=== PATIENT | female | born 2000 | race Two or more races ===

== ENCOUNTER 2021-06-15 20:14 | Emergency (ER) | payer SELFPAY ==
[2021-06-15] MEDS ORDERED: Diphtheria,Pertussis(Acell),Tetanus Vaccine 0.5 ML Syringe IM ONE (20:40)
[2021-06-15] MEDS ORDERED: Lidocaine 1% 10 ML MDV INJECT ONE (20:40)
--- NOTE | 2021-06-15 20:44 | EDM.PDOC ---
ED HPI GENERAL MEDICAL PROBLEM - General Chief Complaint: Upper Extremity Injury/Pain Stated Complaint: RT RING FINGER LAC Time Seen by Provider: 06/15/21 20:30 Source of Information: Reports: Patient, RN Notes Reviewed History Limitations: Reports: Language Barrier (Patient has family member in room that speaks Colombian and does translate from Czech.) - History of Present Illness INITIAL COMMENTS - FREE TEXT/NARRATIVE: Patient is a 21-year-old female presents to the ER for evaluation of a right ring finger laceration. This is on the posterior aspect of the patient's DIP joint. Roughly 1 cm in linear and fashion. States she was cooking supper, and ended up cutting her finger on accident. She is denying any severe numbness or tingling distal to the injury, she has no loss of range of motion within the digit. Bleeding is under control at this time. Patient is not up-to-date on her tetanus vaccine. Patient denies any other sick-like symptoms, fever/chills, cough/shortness of breath, nausea/vomiting/diarrhea. Right Middle Finger-Ring Pain Score (Numeric/FACES): 1 - Related Data Allergies Allergy/AdvReac Type Severity Reaction Status Date / Time acetaminophen [From Percocet] Allergy Intermediate Rash Verified 06/15/21 20:44 oxycodone [From Percocet] Allergy Intermediate Rash Verified 06/15/21 20:44 Home Meds: Home Meds . [No Known Home Meds] 06/15/21 [History] Review of Systems - Review of Systems Review Of Systems: Comprehensive ROS is negative, except as noted in HPI. ED EXAM, GENERAL - Physical Exam Exam: See Below Exam Limited By: No Limitations General Appearance: Alert, WD/WN, No Apparent Distress Respiratory/Chest: No Respiratory Distress, Lungs Clear, Normal Breath Sounds, No Accessory Muscle Use, Chest Non-Tender Cardiovascular: Normal Peripheral Pulses, Regular Rate, Rhythm, No Edema Extremities: Normal Inspection, Normal Capillary Refill Neurological: Alert, Oriented, Normal Cognition, No Motor/Sensory Deficits Psychiatric: Normal Affect, Normal Mood Skin Exam: Warm, Dry, Normal Color, No Rash, Wound/Incision (1 cm linear laceration to the patient's distal interphalangeal joint on the posterior right ring finger.) ED TRAUMA EXTREMITY PROCEDURES - Laceration/Wound Repair Right Posterior Distal Digit - 4th (Ring) Lac/Wound Length In cm: 1 Appearance: Superficial, Linear, Clean Distal NVT: Neuro & Vascular Intact, No Tendon Injury Anesthetic Type: Local Local Anesthesia - Lidocaine (Xylocaine): 1% Plain Local Anesthetic Volume: 3cc Skin Prep: Chlorhexidine (Hibiciens), Saline Exploration/Debridement/Repair: Wound Explored, In a Bloodless Field, Explored to Base, No Foreign Material Found Closed With: Sutures Suture Size: 4-0 # of Sutures: 4 Suture Type: Prolene, Interrupted, Simple Sterile Dressing Applied: Nurse Tetanus Status Addressed: Yes (updated at today's visit) Complications: No Course - Vital Signs Last Recorded V/S: Last Vital Signs Temp 96.8 F L 06/15/21 20:26 Pulse 74 06/15/21 20:26 Resp 16 06/15/21 20:26 BP 104/71 06/15/21 20:26 Pulse Ox 100 06/15/21 20:26 - Orders/Labs/Meds Orders: Active Orders 24 hr Category Date Time Status Vaccine to be Administered/Admin Charge [RC] ASDIRECTED Care 06/15/21 20:40 Active Meds: Medications Discontinued Medications Generic Name Dose Route Start Last Admin Trade Name Freq PRN Reason Stop Dose Admin Diphtheria/Tetanus/Acell Pertussis 0.5 ml 06/15/21 20:40 06/15/21 20:55 Diphtheria,Pertussis(Acell),Tetanus Vaccine 0.5 Ml Syringe IM 06/15/21 20:41 0.5 ml .ONCE ONE Administration Lidocaine HCl 10 ml 06/15/21 20:40 Lidocaine 1% 10 Ml Mdv INJECT 06/15/21 20:41 ONETIME ONE Departure - Departure Time of Disposition: 20:43 Disposition: Home, Self-Care 01 Condition: Good Clinical Impression: Finger laceration Qualifiers: Encounter type: initial encounter Finger: ring finger Damage to nail status: without damage Foreign body presence: without foreign body Laterality: right Qualified Code(s): S61.214A - Laceration without foreign body of right ring finger without damage to nail, initial encounter - Discharge Information *PRESCRIPTION DRUG MONITORING PROGRAM REVIEWED*: No *COPY OF PRESCRIPTION DRUG MONITORING REPORT IN PATIENT RAMONA: No Instructions: Laceration Care, Adult, [id number] Referrals: PCP,None [Primary Care Provider] - Forms: ED Department Discharge Additional Instructions: You have been evaluated in the ED for your laceration. Sutures will need to stay in for 10 to 14 days. You may return to the ED or any clinic for removal. Please keep this area clean and dry, you may cleanse with regular soap and water. No vigorous scrubbing. Please try to avoid submerging the affected area in water for prolonged periods of time until the sutures are removed. Watch out for signs of infection like increased redness, swelling, pain at the laceration site, or if you should develop any fevers or chills. Please return to ED if your symptoms change or worsen. Haney sido evaluado en el servicio de urgencias por artis laceracin. Las suturas debern permanecer entre 10 y 14 patterson. Puede regresar al servicio de urgencias o cualquier clnica para que lo retiren. Mantenga esta yesenia limpia y seca, puede limpiarla con agua y jabn comn. Sin fregar vigorosamente. Intente evitar sumergir el yesenia afectada en agua robb perodos prolongados de tiempo hasta que se retiren las suturas. Tenga cuidado con los signos de infeccin, domonique aumento del enrojecimiento, hinchazn, dolor en el sitio de la laceracin o si presenta fiebre o escalofros. Regrese al servicio de urgencias si rl sntomas cambian o empeoran. Sepsis Event Note (ED) - Focused Exam Vital Signs: Vital Signs Temp Pulse Resp BP Pulse Ox 06/15/21 20:26 96.8 F L 74 16 104/71 100 - My Orders Last 24 Hours: My Active Orders 06/15/21 20:40 Vaccine to be Administered/Admin Charge [RC] ASDIRECTED - Assessment/Plan Last 24 Hours: My Active Orders 06/15/21 20:40 Vaccine to be Administered/Admin Charge [RC] ASDIRECTED
== END 2021-06-15 21:30 | disposition home or self-care (01) ==
LOC: JD.ED 20:14
DX: S61.214A Laceration without foreign body of right ring finger without damage to nail, initial encounter (principal); Z88.5 Allergy status to narcotic agent; Z23 Encounter for immunization; W26.0XXA Contact with knife, initial encounter; Y93.G3 Activity, cooking and baking
CPT/HCPCS: 90471; 90715; 99282

== ENCOUNTER 2021-07-10 19:44 | Emergency (ER) | payer BC ==
--- NOTE | 2021-07-10 20:28 | EDM.PDOC ---
ED HPI GENERAL MEDICAL PROBLEM - General Chief Complaint: General Stated Complaint: SINUS INFECTION Time Seen by Provider: 07/10/21 20:02 Source of Information: Reports: Patient, Family History Limitations: Reports: Language Barrier - History of Present Illness INITIAL COMMENTS - FREE TEXT/NARRATIVE: 21-year-old female presents the emergency department accompanied with her lulu nd with complaints of increased redness to her nose despite using antibiotic ointment. She also has developed increased pressure and pain to her frontal and maxillary sinuses over the past few days. She denies any recent fever, chills, nausea, vomiting or diarrhea. She occasionally has sinus congestion. She does have a history of issues with her sinuses. She states she is otherwise healthy. Patient is not Liberian speaking however her was able to translate. Left Face/Facial Pain Score (Numeric/FACES): 10 - Related Data Allergies Allergy/AdvReac Type Severity Reaction Status Date / Time acetaminophen [From Percocet] Allergy Intermediate Rash Verified 06/15/21 20:44 oxycodone [From Percocet] Allergy Intermediate Rash Verified 07/10/21 20:05 Home Meds: Home Meds Doxycycline [Vibra-Tabs] 100 mg PO Q12HR #14 tab 07/10/21 [Rx] Past Medical History HEENT History: Reports: None Cardiovascular History: Reports: None Respiratory History: Reports: None Gastrointestinal History: Reports: None Genitourinary History: Reports: None Musculoskeletal History: Reports: None Neurological History: Reports: None Psychiatric History: Reports: None Endocrine/Metabolic History: Reports: None Hematologic History: Reports: None Immunologic History: Reports: None Oncologic (Cancer) History: Reports: None Dermatologic History: Reports: None - Past Surgical History Head Surgeries/Procedures: Reports: None Respiratory Surgical History: Reports: None GI Surgical History: Reports: None Female Surgical History: Reports: None Endocrine Surgical History: Reports: None Social & Family History - Tobacco Use Tobacco Use Status *Q: Never Tobacco User - Caffeine Use Caffeine Use: Reports: None ED ROS GENERAL - Review of Systems Review Of Systems: Comprehensive ROS is negative, except as noted in HPI. ED EXAM, GENERAL - Physical Exam Exam: See Below Exam Limited By: No Limitations General Appearance: Alert, WD/WN, No Apparent Distress Ears: Normal External Exam, Hearing Grossly Normal Nose: Normal Mucosa, No Blood, Other (Increased area of redness noted to the tip of the patient's nose) Throat/Mouth: Normal Inspection, Normal Lips, Normal Voice, No Airway Compromise Head: Atraumatic, Normocephalic Neck: Normal Inspection, Supple Respiratory/Chest: No Respiratory Distress, Lungs Clear, Normal Breath Sounds, No Accessory Muscle Use, Chest Non-Tender Cardiovascular: Normal Peripheral Pulses, Regular Rate, Rhythm, No Edema, No Murmur Peripheral Pulses: 2+: Radial (L), Radial (R) GI/Abdominal: Normal Bowel Sounds, Soft, Non-Tender, No Distention (Female) Exam: Deferred Rectal (Female) Exam: Deferred Back Exam: Normal Inspection Neurological: Alert, Oriented, Normal Cognition Psychiatric: Normal Affect, Normal Mood Skin Exam: Warm, Dry, Intact, No Rash, Erythema (Tip of the patient's nose) Lymphatic: No Adenopathy Course - Vital Signs Text/Narrative:: As stated above, patient presents with area of redness/cellulitis noted to the tip of her nose. Area is painful to touch. Was seen at the walk-in clinic a few days ago and prescribed Bactroban ointment however she states she has now developed sinus pain and pressure. Upon exam, patient does have significant tenderness noted to left frontal and maxillary sinuses with pain into her teeth on the left side. Physical exam is otherwise unremarkable. Patient will be discharged home with a prescription for doxycycline to treat both the skin infection as well as a sinusitis. Last Recorded V/S: Last Vital Signs Temp 98.8 F 07/10/21 20:02 Pulse 92 07/10/21 20:02 Resp 18 07/10/21 20:02 BP 110/75 07/10/21 20:02 Pulse Ox 100 07/10/21 20:02 Departure - Departure Time of Disposition: 20:23 Disposition: Home, Self-Care 01 Condition: Good Clinical Impression: Sinusitis, acute Qualifiers: Sinusitis location: frontal Recurrence: not specified as recurrent Qualified Code(s): J01.10 - Acute frontal sinusitis, unspecified - Discharge Information Prescriptions: Doxycycline [Vibra-Tabs] 100 mg PO Q12HR #14 tab Instructions: Sinusitis, Adult, [id number] Referrals: PCP,None [Primary Care Provider] - Forms: ED Department Discharge Additional Instructions: Neyshlimar the emergency department with complaints of a painful sore to the tip of her nose as well as pain in her sinuses on the left side. Continue using the topical antibiotic ointment as directed. As discussed this likely could take up to 10 days to resolve. I have sent a prescription to [place] [facility] for an antibiotic called doxycycline. She will need to take 1 tab twice daily until gone. It will be for a total of 7 days. This will clear up the infection in her sinuses as well as assist with clearing up the infection on her nose. As discussed, it likely will take a couple of days before she notices the antibiotics are working. Recommend taking ibuprofen 600 mg every 6-8 hours for the next 48 hours to decrease the pain until the antibiotics take effect. Also recommend using hot wet compresses to her nose up to 4 times a daily. Sepsis Event Note (ED) - Evaluation Sepsis Screening Result: No Definite Risk - Focused Exam Vital Signs: Vital Signs Temp Pulse Resp BP Pulse Ox 07/10/21 20:02 98.8 F 92 18 110/75 100
== END 2021-07-10 20:37 | disposition home or self-care (01) ==
LOC: JD.ED 19:44
DX: J01.10 Acute frontal sinusitis, unspecified (principal); Z88.5 Allergy status to narcotic agent; Z88.8 Allergy status to other drugs, medicaments and biological substances
CPT/HCPCS: 99283

== ENCOUNTER 2022-02-12 22:06 | Emergency (ER) | payer BC, MEDICAID | END 2022-02-12 23:29 | disposition home or self-care (01) | LOC: JD.ED 22:06 | DX: N64.4 Mastodynia (principal); L73.1 Pseudofolliculitis barbae; Z88.5 Allergy status to narcotic agent; Z88.8 Allergy status to other drugs, medicaments and biological substances; Z86.16 Personal history of COVID-19 | CPT/HCPCS: 99283 ==

== ENCOUNTER 2022-02-28 18:57 | Emergency (ER) | payer BC, MEDICAID ==
[2022-02-28] MEDS ORDERED: Ondansetron 4 MG Tab.DIS PO ONE (22:15)
== END 2022-02-28 23:55 | disposition home or self-care (01) ==
LOC: JD.ED 18:57
DX: O21.9 Vomiting of pregnancy, unspecified (principal); Z3A.00 Weeks of gestation of pregnancy not specified; Z88.5 Allergy status to narcotic agent; Z88.6 Allergy status to analgesic agent; Z86.16 Personal history of COVID-19; Z87.891 Personal history of nicotine dependence
CPT/HCPCS: 36415; 80053; 81025; 85025; 99284; A9270

== ENCOUNTER 2022-03-09 19:24 | Emergency (ER) | payer MEDICAID ==
[2022-03-09] MEDS ORDERED: Sodium Chloride 0.9% 10 ML Syringe FLUSH PRN (21:00)
== END 2022-03-09 22:50 | disposition home or self-care (01) ==
LOC: JD.ED 19:24
DX: O99.891 Other specified diseases and conditions complicating pregnancy (principal); R10.32 Left lower quadrant pain; R10.31 Right lower quadrant pain; Z3A.01 Less than 8 weeks gestation of pregnancy; Z86.16 Personal history of COVID-19; Z88.6 Allergy status to analgesic agent; Z88.5 Allergy status to narcotic agent
CPT/HCPCS: 36415; 76817; 81003; 84702; 85025; 86900; 86901; 99284; J3490; 99283

== ENCOUNTER 2022-03-15 22:37 | Emergency (ER) | payer MEDICAID ==
[2022-03-15] MEDS ORDERED: Sodium Chloride 0.9% 10 ML Syringe FLUSH PRN (23:29)
[2022-03-15] MEDS ORDERED: HYDROmorphone 0.5 MG/0.5 ML Syringe IVPUSH ONE (23:31)
== END 2022-03-16 01:30 | disposition home or self-care (01) ==
LOC: JD.ED 22:37
DX: O03.9 Complete or unspecified spontaneous abortion without complication (principal); Z3A.01 Less than 8 weeks gestation of pregnancy; Z88.6 Allergy status to analgesic agent; Z88.5 Allergy status to narcotic agent; Z86.16 Personal history of COVID-19; Z87.891 Personal history of nicotine dependence
CPT/HCPCS: 36415; 76817; 84702; 85025; 86900; 86901; 96374; 99284; J1170; J3490

== ENCOUNTER 2022-03-19 17:13 | Day surgery (SDC) | payer MEDICAID ==
[2022-03-19] MEDS ORDERED: Ondansetron 4 MG/2 ML SDV IVPUSH ONE (17:41)
[2022-03-19] MEDS ORDERED: Sodium Chloride 0.9% 10 ML Syringe FLUSH PRN (17:41)
[2022-03-19] MEDS ORDERED: HYDROmorphone 0.5 MG/0.5 ML Syringe IVPUSH ONE (17:41)
[2022-03-19] MEDS ORDERED: Sodium Chloride 0.9% 1,000 ML IV STA (17:41)
[2022-03-19 18:50] LABS: ESTIMATED GFR 105 mL/min (>60)
[2022-03-19] MEDS ORDERED: Ondansetron 4 MG/2 ML SDV ONE (20:31)
[2022-03-19] MEDS ORDERED: fentaNYL 250 MCG/5 ML SDV ONE (20:31)
[2022-03-19] MEDS ORDERED: Dexamethasone 4 MG/ML 5 ML MDV ONE (20:31)
[2022-03-19] MEDS ORDERED: Propofol 200 MG/20 ML SDV ONE (20:31)
[2022-03-19] MEDS ORDERED: diphenhydrAMINE 50 MG/ML SDV ONE (20:31)
[2022-03-19] MEDS ORDERED: Midazolam 1 MG/ML 2 ML SDV ONE (20:31)
[2022-03-19] MEDS ORDERED: Ketorolac 30 MG/ML SDV ONE (20:31)
[2022-03-19] MEDS ORDERED: Rocuronium 50 MG/5 ML Vial ONE (20:31)
[2022-03-19] MEDS ORDERED: Lidocaine 1% 5 ML VIAL ONE (20:31)
[2022-03-19] MEDS ORDERED: Sugammadex Sodium 200 MG/2 ML VIAL ONE (20:34)
[2022-03-19] MEDS ORDERED: Ondansetron 4 MG/2 ML SDV IVPUSH PRN (21:31)
[2022-03-19] MEDS ORDERED: fentaNYL 100 MCG/2 ML SDV IVPUSH PRN (21:31)
== END 2022-03-19 22:55 | disposition home or self-care (01) ==
LOC: JD.ED 17:13 → JD.SDS 19:45
PROVIDERS: ATTEND Obstetrics & Gynecology
DX: O72.2 Delayed and secondary postpartum hemorrhage (principal); O03.1 Delayed or excessive hemorrhage following incomplete spontaneous abortion; Z88.8 Allergy status to other drugs, medicaments and biological substances; Z88.5 Allergy status to narcotic agent; Z79.899 Other long term (current) drug therapy; Z86.16 Personal history of COVID-19; Z87.891 Personal history of nicotine dependence
CPT/HCPCS: 36415; 59812; 76830; 80053; 84702; 85025; 86850; 86900; 86901; 96361; 96374; 96375; 99285; J1100; J1170; J1200; J1885; J2250; J2405; J2704; J3010; J3490; J7030; 01965; 99140

== ENCOUNTER 2022-04-28 17:04 | Emergency (ER) | payer MEDICAID | END 2022-04-28 23:26 | disposition home or self-care (01) | LOC: JD.ED 17:04 | DX: S70.12XA Contusion of left thigh, initial encounter (principal); K62.5 Hemorrhage of anus and rectum; F17.210 Nicotine dependence, cigarettes, uncomplicated; Z86.16 Personal history of COVID-19 | CPT/HCPCS: 36415; 74018; 74018-26; 85025; 85610; 85730; 99284 ==

== ENCOUNTER 2022-06-07 15:19 | Emergency (ER) | payer MEDICAID ==
[2022-06-07] MEDS ORDERED: Ondansetron 4 MG/2 ML SDV IVPUSH ONE (15:57)
[2022-06-07] MEDS ORDERED: Ketorolac 30 MG/ML SDV IVPUSH ONE (15:57)
[2022-06-07] MEDS ORDERED: Lactated Ringers 1,000 ML IV ONE (15:57)
[2022-06-07] MEDS ORDERED: Sodium Chloride 0.9% 10 ML Syringe FLUSH PRN (15:58)
[2022-06-07] MEDS ORDERED: Famotidine 20 MG/2 ML SDV IVPUSH ONE (15:58)
== END 2022-06-07 19:21 | disposition home or self-care (01) ==
LOC: JD.ED 15:19
DX: R11.2 Nausea with vomiting, unspecified (principal); R19.7 Diarrhea, unspecified; F17.210 Nicotine dependence, cigarettes, uncomplicated
CPT/HCPCS: 36415; 80053; 81003; 83690; 85025; 96361; 96374; 96375; 99283; 99284-25; J1885; J2405; J3490; J7120

== ENCOUNTER 2022-08-13 05:55 | Emergency (ER) | payer MEDICAID, BC ==
[2022-08-13] MEDS ORDERED: Lactated Ringers 1,000 ML IV ONE (07:22)
[2022-08-13] MEDS ORDERED: Ondansetron 4 MG/2 ML SDV IVPUSH ONE (07:22)
[2022-08-13] MEDS ORDERED: Sucralfate Suspension 1 GM/10 ML Cup PO ONE (07:39)
[2022-08-13 08:17] LABS: ESTIMATED GFR 105 mL/min (>60)
[2022-08-13] MEDS ORDERED: Potassium Chloride 20 MEQ Tab.ER PO ONE (08:37)
[2022-08-13 09:36] LABS: C. TRACHOMATIS BY PCR NOT DETECTED; N. GONORRHOEAE BY PCR NOT DETECTED
== END 2022-08-13 10:47 | disposition home or self-care (01) ==
LOC: JD.ED 05:55
DX: R10.9 Unspecified abdominal pain (principal); Z88.5 Allergy status to narcotic agent; Z88.6 Allergy status to analgesic agent
CPT/HCPCS: 36415; 80053; 81003; 81025; 83690; 85025; 86308; 87491; 87591; 87651; 96361; 96374; 99284; A9270; J2405; J7120